=== PATIENT | female | born 1960 | race Caucasian/White ===

== ENCOUNTER → 2018-06-15 | Outpatient (CLI) | payer BC ==
[~2018-06-15] MED LIST: HYDR1TAB8 OP
--- NOTE | 2018-06-15 14:07 | Diagnostic Imaging Report ---
INDICATION: Routine screening. COMPARISONS are made with prior mammograms from 06/08/2016 and 12/15/2014. 2-D and 3-D bilateral screening mammography was performed with CAD. Both breasts are heterogeneously dense, limiting the sensitivity of mammography. The parenchymal pattern is stable. No mass or malignant-appearing microcalcifications. The axillae are unremarkable. IMPRESSION: BI-RADS category 2. No mammographic features suspicious for malignancy are identified. ACR BI-RADS Category 2: Benign findings. Result letter will be mailed to the patient. Note: At least 10% of breast cancer is not imaged by mammography. Dictated on workstation # [id number]
== END ==
LOC: RAD 11:22
PROVIDERS: ATTEND Obstetrics & Gynecology
DX: Z12.31 Encounter for screening mammogram for malignant neoplasm of breast (principal); Z80.3 Family history of malignant neoplasm of breast
CPT/HCPCS: 77067

== ENCOUNTER → 2019-07-26 | Outpatient (CLI) | payer BC ==
--- NOTE | 2019-07-26 15:54 | Diagnostic Imaging Report ---
PROCEDURE: MRI lumbar spine. TECHNIQUE: Multiplanar, multisequence MRI of the lumbar spine was performed without contrast. INDICATION: Low back pain. COMPARISON: No prior studies are available for comparison. FINDINGS: Curvature and alignment of the lumbar spine is within normal limits. Marrow signal intensity is unremarkable apart from a benign hemangiolipoma within the T12 vertebral body. Vertebral body heights are well-maintained. No acute compression fracture is identified. There is loss of height and signal intensity to the L5-S1 disc compatible with degenerative disc disease. Modic changes in the adjacent endplates are noted. The conus is unremarkable at approximately T12-L1 level. T12-L1: The central canal and neural foramina are widely patent. L1-L2: The central canal and neural foramina are widely patent. L2-L3: Mild ligamentous thickening is present. Central canal and neural foramina are widely patent. L3-L4: There is some ligamentous thickening and facet changes but central canal remains patent. There may be very mild neural foraminal narrowing. Very slight retrolisthesis of L3 on L4 is noted. L4-L5: Broad-based disc/osteophyte complex flattens the ventral thecal sac. Central canal remains patent. There is ligamentous thickening and facet changes. There is [id number] left neural foraminal narrowing. Right neuroforamen is patent. L5-S1: Broad-based disc/osteophyte complex flattens the ventral thecal sac. Central canal remains patent. There is narrowing of bilateral lateral recesses. There is also moderate bilateral neural foraminal stenosis greater on the right. Paraspinous tissues are unremarkable. IMPRESSION: Lower lumbar spondylosis and facet arthropathy with mild multilevel lateral recess and neural foraminal stenosis described level by level above. No central canal stenosis is seen. No acute compression fracture is identified. Dictated by: Dictated on workstation # [id number]
== END ==
LOC: RAD 15:05
PROVIDERS: ATTEND Family Medicine
DX: M47.816 Spondylosis without myelopathy or radiculopathy, lumbar region (principal); M48.061 Spinal stenosis, lumbar region without neurogenic claudication
CPT/HCPCS: 72148

== ENCOUNTER → 2019-11-22 | Outpatient (CLI) | payer BC ==
--- NOTE | 2019-11-22 15:30 | Diagnostic Imaging Report ---
INDICATION: Routine screening. Comparison is made with prior mammograms from 06/15/2018 and 06/08/2016. 2-D and 3-D bilateral screening mammography was performed. The current study was also evaluated with a Computer Aided Detection (CAD) system. 3-D tomosynthesis was also performed and reviewed. FINDINGS: Scattered fibroglandular densities are identified bilaterally. There are densities noted in the outer portions of both breasts at mid depth best seen on the CC views. Density on the right is best seen on tomographic image 26 on the CC images. No correlate on the MLO view is identified. Density on the left is lateral left breast mid depth best seen on the CC view. No definite correlate on the MLO view is identified. No suspicious calcifications are seen. Axillae are unremarkable. IMPRESSION: Bilateral breast densities. Additional views are recommended for further evaluation. ACR BI-RADS Category 0: Incomplete. (Needs additional imaging evaluation). Result letter will be mailed to the patient. Note: At least 10% of breast cancer is not imaged by mammography. Dictated by: Dictated on workstation # [id number]
== END ==
LOC: RAD 14:25
PROVIDERS: ATTEND Obstetrics & Gynecology
DX: Z12.31 Encounter for screening mammogram for malignant neoplasm of breast (principal)
CPT/HCPCS: 77067

== ENCOUNTER → 2019-12-09 | Outpatient (CLI) | payer BC ==
--- NOTE | 2019-12-09 13:07 | Diagnostic Imaging Report ---
INDICATION: Bilateral breast densities. Patient presents for additional views. Correlation is made with recent screening study from 11/22/2019. 2-D and 3-D bilateral diagnostic mammography was performed with CAD. This included spot compression CC views bilaterally as well as bilateral mediolateral views and bilateral rolled CC views. There is a persistent density in the outer right breast. This appears to be inferiorly located on the tomographic images. This is approximately 9 cm from the nipple. Additional views of the left breast fail to demonstrate a discrete mass. Area of density in the outer left breast at posterior depth appears to represent superimposed tissue. No suspicious calcifications are seen. IMPRESSION: BI-RADS 0 1. Persistent density in the lower outer right breast posterior depth. Further evaluation with ultrasound is recommended and will be performed today. 2. Unremarkable additional views of the left breast. ACR BI-RADS Category 0: Incomplete. (Needs additional imaging evaluation). Result letter will be mailed to the patient. Note: At least 10% of breast cancer is not imaged by mammography. Dictated by: Dictated on workstation # [id number]
--- NOTE | 2019-12-11 08:16 | Diagnostic Imaging Report ---
INDICATION: Right breast density. Correlation is made with screening mammogram from 11/22/2019 and diagnostic mammogram from 12/09/2019. Sonographic interrogation outer right breast was performed. There is a small ovoid cyst at 9:00 location, 7 cm from the nipple measuring 6 mm x 3 mm x 4 mm. Even smaller adjacent cyst is present. Likely accounts for the mammographic density. No solid masses are seen. IMPRESSION: BI-RADS 2 Simple cyst 9:00 location of the right breast, likely accounting for the mammographic density. Patient may return to routine annual screening mammography. ACR BI-RADS Category 2: Benign findings. Dictated by: Dictated on workstation # [id number]
== END ==
LOC: RAD 12:21
PROVIDERS: ATTEND Obstetrics & Gynecology
DX: N60.01 Solitary cyst of right breast (principal)
CPT/HCPCS: 77066

== ENCOUNTER 2020-07-21 05:36 | Outpatient (RCR) | payer BC ==
[~2020-07-21] VITALS: Ht 165.1 cm; Wt 109.1 kg
[~2020-07-21 05:36] MED LIST changes: +ALPR1TAB7 PO; +AMLO-250 PO; +ENAL20TA16 PO
== END 2020-10-18 ==
LOC: PREOP 05:36
PROVIDERS: ATTEND Internal Medicine
DX: Z53.8 Procedure and treatment not carried out for other reasons (principal)

== ENCOUNTER 2020-08-10 15:45 | Outpatient (CLI) | payer BC | END 2020-08-10 16:20 | disposition home or self-care (01) | LOC: SLEEP 15:45 | PROVIDERS: ATTEND Nurse Practitioner | DX: G47.33 Obstructive sleep apnea (adult) (pediatric) (principal) ==

== ENCOUNTER → 2021-05-10 | Outpatient (CLI) | payer BC ==
--- NOTE | 2021-05-11 12:51 | Diagnostic Imaging Report ---
Indication: Routine screening. Comparison is made with prior mammogram from 11/22/2019 and 06/15/2018. 2-D and 3-D bilateral screening mammography was performed with CAD. Both breasts are heterogeneously dense, limiting the sensitivity of mammography. There is a new density in the outer aspect of the right breast at mid depth. No definite correlate on the MLO view is seen. Left breast is unremarkable. No malignant-appearing microcalcifications are seen. Axillae are unremarkable. IMPRESSION: BI-RADS 0 Right breast density. Additional views recommended for further evaluation. ACR BI-RADS Category 0: Incomplete. (Needs additional imaging evaluation). Result letter will be mailed to the patient. Note: At least 10% of breast cancer is not imaged by mammography. Dictated by: Dictated on workstation # [id number]
== END ==
LOC: RAD 15:27
PROVIDERS: ATTEND Obstetrics & Gynecology
DX: Z12.31 Encounter for screening mammogram for malignant neoplasm of breast (principal)
CPT/HCPCS: 77063; 77067

== ENCOUNTER → 2021-05-21 | Outpatient (CLI) | payer BC ==
--- NOTE | 2021-05-21 14:55 | Diagnostic Imaging Report ---
INDICATION: Right breast density. Patient presents for additional views. Correlation is made with screening study from 05/10/2021. Unilateral right 2-D and 3-D diagnostic mammography was performed. This included spot compression CC, rolled CC as well as conventional 90 degrees lateral views. There is a persistent nodular density in the outer right breast approximately 7 cm from the nipple. This is difficult to locate on the medial lateral views. No other suspicious abnormality is seen. IMPRESSION: BI-RADS 0 Persistent density outer right breast 7 cm from the nipple. Further evaluation outer right breast with ultrasound is recommended and will be performed today. ACR BI-RADS Category 0: Incomplete. (Needs additional imaging evaluation). Result letter will be mailed to the patient. Note: At least 10% of breast cancer is not imaged by mammography. Dictated by: Dictated on workstation # [id number]
--- NOTE | 2021-05-21 15:27 | Diagnostic Imaging Report ---
INDICATION: Right breast density. COMPARISON: Correlation is made with the diagnostic mammogram of earlier the same day and screening mammogram from 05/10/2021. EXAMINATION: Sonographic interrogation of the outer right breast was performed. FINDINGS: At the 11 o'clock location, 5 cm from the nipple, is a small cyst measuring 7 mm x 4 mm x 4 mm. This shows minimal internal debris. This likely accounts for the mammographic density. No internal vascularity is present. There is a tiny cluster of cysts at the 9 o'clock location, 6 cm from the nipple. No solid masses are detected. IMPRESSION: Right breast cyst. Cyst at the 11 o'clock location likely accounts for the mammographic density. The patient may return to routine annual screening mammography. Dictated by: Dictated on workstation # [id number]
== END ==
LOC: RAD 14:15
PROVIDERS: ATTEND Obstetrics & Gynecology
DX: N60.01 Solitary cyst of right breast (principal)
CPT/HCPCS: 76642; 77065; G0279

== ENCOUNTER → 2022-11-18 | Outpatient (CLI) | payer BC ==
--- NOTE | 2022-11-21 09:00 | Diagnostic Imaging Report ---
INDICATION: Routine screening. Comparison is made with prior mammogram from 05/10/2021 and 11/22/2019. 2-D and 3-D bilateral screening mammography was performed with CAD. Both breasts are heterogeneously dense, limiting the sensitivity of mammography. A benign-appearing nodule in the upper outer right breast appears stable and was shown by ultrasound to represent a cyst. No new mass is identified. No malignant-appearing microcalcifications are seen. Axillae are unremarkable. IMPRESSION: No mammographic features suspicious for malignancy are identified. ACR BI-RADS Category 2: Benign findings. Result letter will be mailed to the patient. Note: At least 10% of breast cancer is not imaged by mammography. BI-RADS Category 2 Dictated by: Dictated on workstation # [id number]
== END ==
LOC: RAD 15:00
PROVIDERS: ATTEND Internal Medicine
DX: Z12.31 Encounter for screening mammogram for malignant neoplasm of breast (principal)
CPT/HCPCS: 77063; 77067

== ENCOUNTER 2022-11-23 06:12 | Outpatient (CLI) | payer BC ==
[~2022-11-23] VITALS: Ht 165.1 cm; Wt 115.2 kg
[2022-11-23] MEDS ORDERED: IBUP-2185 PO (13:46)
[2022-11-23] MEDS ORDERED: ATOR40TA70 PO (13:46)
== END 2022-11-23 13:49 ==
LOC: PREOP 06:12
PROVIDERS: ATTEND Internal Medicine
DX: Z01.818 Encounter for other preprocedural examination (principal)

== ENCOUNTER 2022-12-02 08:57 | Day surgery (SDC) | payer BC ==
--- NOTE | 2022-11-22 07:40 | HISTORY AND PHYSICAL ---
COLONOSCOPY HISTORY AND PHYSICAL HISTORY OF PRESENT ILLNESS: The patient is a 62-year-old white female referred by Dr. Powell for screening colonoscopy. She thinks that she has had one other colonoscopy over 10 years ago. Does not recall if there are any problems. She denies bowel habit change, bright red blood per rectum, melena or change in weight. She is not aware of any family history for colon cancer or polyps. There is a family history for breast cancer in her mother who succumbed to the disease at the age of 58. She also has had one sister diagnosed with breast cancer. PAST MEDICAL HISTORY: Significant for hypertension and hyperlipidemia with no known history of coronary artery disease. PAST SURGICAL HISTORY: She has had 3 C-sections with 3 living children, tonsillectomy and adenoidectomy as a child and total abdominal hysterectomy in 2008 with bilateral salpingo-oophorectomy for uterine adenomyosis and hyermenorrhagia with secondary anemia. No vaginal bleeding since. SOCIAL HISTORY: She is a teacher at [employer] with no past smoking and occasional small volume alcohol consumption. REVIEW OF SYSTEMS: CONSTITUTIONAL: Denies night sweats, chills, fever or change in weight. GASTROINTESTINAL: As noted in the HPI. PULMONARY: Denies cough, wheezing or shortness of breath. CARDIOVASCULAR: Denies chest pain, orthopnea, PND, or pedal edema. PHYSICAL EXAMINATION: GENERAL: Reveals pleasant white female, appears to be in no acute distress. VITAL SIGNS: Weight 254 pounds, blood pressure 118/84. HEENT: Unremarkable. Sclerae nonicteric. No evidence for pallor. CHEST: Clear to auscultation. CARDIOVASCULAR: Reveals a regular rate and rhythm without murmur, S3, or S4. ABDOMEN: Soft, supple without mass, organomegaly, or tenderness. EXTREMITIES: Revealed no cyanosis, clubbing or edema. ASSESSMENT AND PLAN: The patient is being set up for screening colonoscopy deemed to be of average risk. She qualifies for overweight status and has well controlled hypertension and reportedly well controlled, hyperlipidemia, on medical management. No contraindications to proceeding with the planned procedure. Prep instructions were given and questions were answered. I thank you for the referral of this pleasant lady. Job ID: [id number] DocumentID: [id number] Dictated Date: 11/16/2022 14:22:13 Water Pollution Control Inspector Date: 11/16/2022 14:52:00 Dictated By: FELIPA LILLY MD
[~2022-12-02] VITALS: Ht 165 cm; Wt 115.2 kg
[~2022-12-02 08:57] MED LIST changes: +ATOR40TA70 PO; +IBUP-2185 PO
[2022-12-02] MEDS ORDERED: LACTATED RINGERS 1,000 ML IV STA (08:58)
--- NOTE | 2022-12-02 09:11 | Pre-Op Note & Conscious Sedat ---
Pre-Operative Progress Note Date H&P Reviewed: Dec 02, 2022 Time H&P Reviewed: 09:11 History & Physical: H&P Reviewed, Patient Examed, No changes noted Pre-Op Diagnosis: screening Moderate Sedation PreProcedure ASA Score 2 Airway Lungs Heart ASA score ASA 1: a normal healthy patient ASA 2: a patient with a mild systemic disease (mid diabetes, controlled hypertension, obesity ASA 3: a patient with a severe systemic disease that limits activity (angina, COPD, prior Myocardial infarction) ASA 4: a patient with an incapacitating disease that is a constant threat to life (CHF, renal failure) ASA 5: a moribund patient not expected to survive 24 hrs. (ruptured aneurysm) ASA 6: a declared brain- patient whose organs are being harvested. For emergent operations, add the letter E after the classification Mallampati Classification Grade 2 Sedation Plan Analgesia, Amnesia, Plan communicated to team members, Discussed options with patient/fam, Discussed risks with patient/fam The patient is an appropriate candidate to undergo the planned procedure, sedation, and anesthesia. The patient immediately re-assessed prior to indication. FELIPA LILLY MD Dec 02, 2022 09:11
[2022-12-02 09:35] VITALS: BP 135/101
[2022-12-02] MEDS ORDERED: PROPOFOL INJECTION 50 ML IV ONE (10:35)
[2022-12-02] MEDS ORDERED: MIDAZOLAM 2 MG/2 ML (VERSED) VIAL ONE (10:47)
[2022-12-02] MEDS ORDERED: proPOfol 200 MG/20 ML (DIPRIVAN) VIAL IV ONE (11:03)
[2022-12-02 11:05] VITALS: BP 127/70
--- NOTE | 2022-12-02 11:11 | Anesthesia-General Post-Op ---
MAC Patient Condition Mental Status/LOC: Same as Preop Cardiovascular: Satisfactory Nausea/Vomiting: Absent Respiratory: Satisfactory Pain: Controlled Complications: Absent Post Op Complications Complications None Follow Up Care/Instructions Patient Instructions None needed. Anesthesiology Discharge Order Discharge Order Patient is doing well, no complaints, stable vital signs, no apparent adverse anesthesia problems. No complications reported per nursing. GRISELDA ZAMORA CRNA Dec 02, 2022 11:11
--- NOTE | 2022-12-02 11:13 | Progress Note-Post Operative ---
Post-Procedure Note Physician (s)/F[employer] O[employer] Loader (s) Physician FELIPA LILLY MD Pre-Procedure Diagnosis Pre-Procedure Diagnosis: screening Post-Procedure Diagnosis Post-operative diagnosis: Prior to undergoing colonoscopy digital rectal evaluation was performed. Anal sphincter tone was normal and the perianal reflexes intact. No abnormalities noted on digital inspection of the anal canal or distal rectal vault. The colonoscope was then inserted into the rectum and under direct visualization advanced to the cecum. The cecum was identified by identification of the ileocecal valve and cecal strap. Photographic documentation was obtained. A careful inspection was made as the colonoscope was withdrawn. Quality the prep was good. Findings: There were no evidence for internal or external hemorrhoids. 1 prominent anal papilla was noted with no evidence for polyps. Mild to moderate diverticular disease was noted scattered throughout the colon most prominent in the sigmoid colon. No evidence of diverticulitis was noted. No evidence for neoplasia was identified. A/P 1. Mild to moderate diverticular disease scattered throughout the colon was present without evidence for diverticulitis. This was an otherwise normal colonoscopy to the cecum with no evidence for neoplasia. Would advocate consideration for repeat screening colonoscopy in 10 years. I thank you for the furl this pleasant lady I sincerely, Felipa Lilly MD. CC: Dr. Vicenta Powell DO. FELIPA LILLY MD Dec 02, 2022 11:13
[2022-12-02 11:25] VITALS: BP 146/105
[2022-12-02 11:40] VITALS: BP 146/105
== END 2022-12-02 11:40 | disposition home or self-care (01) ==
LOC: ENDO 08:57
PROVIDERS: ATTEND Internal Medicine
DX: Z12.11 Encounter for screening for malignant neoplasm of colon (principal); K62.89 Other specified diseases of anus and rectum; K57.30 Diverticulosis of large intestine without perforation or abscess without bleeding; I10 Essential (primary) hypertension; E78.5 Hyperlipidemia, unspecified; Z79.899 Other long term (current) drug therapy